=== PATIENT | female | born 1995 | race African-American/Black ===

== ENCOUNTER 2016-08-24 17:49 | Emergency (ER) | payer OTHER ==
[~2016-08-24] VITALS: Ht 162.6 cm; Wt 52.2 kg
--- NOTE | 2016-08-24 18:00 | ED.ADGEN ---
Past History Past Medical History: No Pertinent History Past Surgical History: No Surgical History Smoking: Less than 1pk/day Alcohol Use: None Drug Use: None Adult General Chief Complaint Chief Complaint " .. I got my depo the 3rd of the month.. but I am cramping.. and sweating.. and worried I may be ..." HPI HPI Patient is a 21 year old female who presents with above hx and complaints of cramping and fear she may be . I did get a depo.. and they checked me for .;, but I almost feel . Pt. has history of unprotected sex. Patient had some irregular bleeding and cramping. Patient denies history of STDs. Patient denies any bad food or travel. Patient denies any specific ill contacts. Patient states she lays is vaginal discharge and prior test negative for infection. Patient has a history of 2 and term 2. Review of Systems Review of Systems Constitutional: Denies fever or chills [] Eyes: Denies change in visual acuity, redness, or eye pain [] HENT: Denies nasal congestion or sore throat [] Respiratory: Denies cough or shortness of breath [] Cardiovascular: No additional information not addressed in HPI [] GI: complaints of generalized abdominal pain, nausea, . Denies vomiting, bloody stools or diarrhea [] : Denies dysuria or hematuria [] Complaints of vaginal bleeding. / spotting. Musculoskeletal: Denies back pain or joint pain [] Integument: Denies rash or skin lesions [] Neurologic: Denies headache, focal weakness or sensory changes [] Endocrine: Denies polyuria or polydipsia [] Family History Family History Noncontributory Current Medications Current Medications See nursing for home meds Allergies Allergies Allergies Coded Allergies Type Severity Reaction Last Updated Verified No Known Drug Allergies 06/04/13 No Physical Exam Physical Exam Constitutional: Well developed, well nourished, mild distress, non-toxic appearance. [] HENT: Normocephalic, atraumatic, bilateral external ears normal, oropharynx moist, no oral exudates, nose normal. [] Eyes: PERRLA, EOMI, conjunctiva normal, no discharge. [] Neck: Normal range of motion, no tenderness, supple, no stridor. [] Cardiovascular:Heart rate regular rhythm, no murmur [] Lungs & Thorax: Bilateral breath sounds clear to auscultation [] Abdomen: Bowel sounds normal, soft, mild generalized tenderness, no masses, no pulsatile masses. . Patient declines pelvic exam at this time. No true rebound. Skin: Warm, dry, no erythema, no rash. [] Back: No tenderness, no CVA tenderness. [] Extremities: No tenderness, no cyanosis, no clubbing, ROM intact, no edema. No psoas or obturator sign. Neurologic: Alert and oriented X 3, normal motor function, normal sensory function, no focal deficits noted. [] Psychologic: Affect anxious, judgement normal, mood normal. [] Current Patient Data Vital Signs Vital Signs Date Time Temp Pulse Resp B/P Pulse Ox O2 Delivery O2 Flow Rate FiO2 08/24/16 21:00 78 22 118/64 98 Room Air 08/24/16 18:00 98.3 Lab Results Laboratory Tests Test 08/24/16 17:50 08/24/16 20:15 Urine Collection Type Unknown Urine Color Yellow Urine Clarity Hazy Urine pH 6.5 Urine Specific [place] 1.025 Urine Protein Neg (NEG-TRACE) Urine Glucose (UA) Negmg/dL (NEG) Urine Ketones (Stick) Negmg/dL (NEG) Urine Blood Neg (NEG) Urine Nitrite Neg (NEG) Urine Bilirubin Neg (NEG) Urine Urobilinogen Dipstick 0.2mg/dL (0.2 mg/dL) Urine Leukocyte Esterase Neg (NEG) Urine RBC 0/HPF (0-2) Urine WBC Occ/HPF (0-4) Urine Squamous Epithelial Cells Occ/LPF Urine Bacteria 0/HPF (0-FEW) Urine Hyaline Casts Occ/HPF Urine Test Positive (NEG) Urine Opiates Screen Neg (NEG) Urine Methadone Screen Neg (NEG) Urine Barbiturates Neg (NEG) Urine Phencyclidine Screen Neg (NEG) Urine Amphetamine/Methamphetamine Neg (NEG) Urine Benzodiazepines Screen Neg (NEG) Urine Cocaine Screen Neg (NEG) Urine Cannabinoids Screen Pos (NEG) Urine Ethyl Alcohol Neg (NEG) White Blood Count 7.6x10^3/uL (4.0-11.0) Red Blood Count 4.09x10^6/uL (3.50-5.40) Hemoglobin 13.0g/dL (12.0-15.5) Hematocrit 37.7% (36.0-47.0) Mean Corpuscular Volume 92fL (79-100) Mean Corpuscular Hemoglobin 32pg (25-35) Mean Corpuscular Hemoglobin Concent 35g/dL (31-37) Red Cell Distribution Width 13.4% (11.5-14.5) Platelet Count 256x10^3/uL (140-400) Neutrophils (%) (Auto) 56% (31-73) Lymphocytes (%) (Auto) 32% (24-48) Monocytes (%) (Auto) 7% (0-9) Eosinophils (%) (Auto) 5% (0-3) H Basophils (%) (Auto) 1% (0-3) Neutrophils # (Auto) 4.2x10^3uL (1.8-7.7) Lymphocytes # (Auto) 2.4x10^3/uL (1.0-4.8) Monocytes # (Auto) 0.5x10^3/uL (0.0-1.1) Eosinophils # (Auto) 0.4x10^3/uL (0.0-0.7) Basophils # (Auto) 0.0x10^3/uL (0.0-0.2) Prothrombin Time 10.7SEC (9.4-11.4) Prothrombin Time INR 1.0 (0.9-1.1) PTT 25SEC (23-33) Maternal Serum HCG Beta Subunit 51413lOZ/mL (0-6) H Sodium Level 137mmol/L (136-145) Potassium Level 3.5mmol/L (3.5-5.1) Chloride Level 104mmol/L (98-107) Carbon Dioxide Level 25mmol/L (21-32) Anion Gap 8 (6-14) Blood Urea Nitrogen 7mg/dL (7-20) Creatinine 0.5mg/dL (0.6-1.0) L Estimated GFR (Cockcroft-Gault) 185.0 Glucose Level 81mg/dL (70-99) Calcium Level 8.5mg/dL (8.5-10.1) Total Bilirubin 0.5mg/dL (0.2-1.0) Direct Bilirubin 0.2mg/dL (0.0-0.2) Aspartate Amino Transferase (AST) 15U/L (15-37) Alanine Aminotransferase (ALT) 20U/L (14-59) Alkaline Phosphatase 73U/L (46-116) Total Protein 6.5g/dL (6.4-8.2) Albumin 3.6g/dL (3.4-5.0) EKG EKG [] Radiology/Procedures Radiology/Procedures Ultrasound shows a a retroverted uterus with a 2 x 8 cm with gestation sac, live intrauterine of 7 weeks 3 days heart rate has had 152 bpm. No obvious abnormalities and ovaries. Small amount of free pelvic fluid. [] Course & Med Decision Making Course & Med Decision Making Pertinent Labs and Imaging studies reviewed. (See chart for details). Patient declined further evaluation or pelvic exams. Patient states she will follow-up with her primary care and OB. Patient encouraged take vitamin. Patient return of any concerns. Must follow-up. Patient encouraged to stop smoking. [] Final Impression Final Impression 1. Intrauterine estimated due date 04/07/17 -7 wk 3 days. 2. Small implantation bleed noted [] 3. Beta hCG is 87, 452 4. O + blood type 5. Marijuana and tobacco use 6. Threaten / miscarry Problems: Dragon Disclaimer Dragon Disclaimer This electronic medical record was generated, in whole or in part, using a voice recognition dictation system. SHA JACOB MD Aug 24, 2016 18:00
[2016-08-24 19:04] LABS: AMPHETAMINE/METHAMPHETAMINE NEG (NEG); BARBITURATES NEG (NEG); BENZODIAZEPINES NEG (NEG); CANNABINOIDS POS (NEG); COCAINE NEG (NEG); METHADONE NEG (NEG); OPIATES NEG (NEG); PHENCYCLIDINE NEG (NEG)
[2016-08-24 19:16] LABS: CLARITY,URINE HAZY; COLOR,URINE YELLOW
[2016-08-24 19:17] LABS: BACTERIA,URINE 0 /HPF (0-FEW); BILIRUBIN,URINE NEG (NEG); GLUCOSE,URINE NEG (NEG); HYALINE CASTS, URINE OCC /HPF; NITRITE,URINE NEG (NEG); RBC,URINE 0 /HPF (0-2); SQUAMOUS EPITHELIAL CELL,UR OCC /LPF; UROBILINOGEN,URINE 0.2 mg/dL (0.2 mg/dL); WBC,URINE OCC /HPF (0-4)
[2016-08-24 19:44] LABS: U PREG PATIENT POSITIVE (NEG)
--- NOTE | 2016-08-24 20:46 | RAD ---
PROCEDURE First trimester OB ultrasound. HISTORY Pelvic pain for 1 week. Depo shot on August 09. Patient states negative urine test that day. HCG today not yet available. TECHNIQUE Transabdominal imaging was initially performed, transvaginal imaging also required to better evaluate the IUP. COMPARISON None. FINDINGS There is a single live intrauterine with heart tones of 152 beats per minute. Gestational sac and crown-rump length are concordant. Yolk sac is visualized. [place]-rump length measurement is 1.27 centimeters corresponding to a gestational age of 7 weeks 3 days and an KADI by ultrasound of April 09, 2017. There is an implantation bleed measuring 2.8 x 0.7 x 2.2 centimeters. Both maternal ovaries are visualized and unremarkable, color-flow documented. Uterus is retroverted. Small amount of free pelvic fluid is noted. IMPRESSION Single live intrauterine measures 7 weeks 3 days with heart tones of 152 beats per minute. Small implantation bleed noted. Short-term follow-up would be of benefit given implantation bleed. Electronically signed by: Inder Nunn MD (Aug 24, 2016 20:44:53)
[2016-08-24 20:50] LABS: BASO % 1 % (0-3); EOS # 0.4 x10^3/uL (0.0-0.7); EOS % 5 % (0-3); HEMATOCRIT 37.7 % (36.0-47.0); LYMPH # 2.4 x10^3/uL (1.0-4.8); LYMPH % 32 % (24-48); MEAN CORPUSCULAR HEMOGLOBIN 32 pg (25-35); MEAN CORPUSCULAR HGB CONC 35 g/dL (31-37); MEAN CORPUSCULAR VOLUME 92 fL (79-100); MONO # 0.5 x10^3/uL (0.0-1.1); MONO % 7 % (0-9); NEUT # 4.2 x10^3uL (1.8-7.7); NEUT % 56 % (31-73); PLATELET COUNT 256 x10^3/uL (140-400); RED BLOOD COUNT 4.09 x10^6/uL (3.50-5.40); RED CELL DISTRIBUTION WIDTH 13.4 % (11.5-14.5); WHITE BLOOD COUNT 7.6 x10^3/uL (4.0-11.0)
[2016-08-24 21:00] VITALS: BP 118/64
[2016-08-24 21:04] LABS: ALBUMIN 3.6 g/dL (3.4-5.0); CALCIUM 8.5 mg/dL (8.5-10.1); CREATININE 0.5 mg/dL (0.6-1.0); DIRECT BILIRUBIN 0.2 mg/dL (0.0-0.2); POTASSIUM 3.5 mmol/L (3.5-5.1); TOTAL BILIRUBIN 0.5 mg/dL (0.2-1.0); TOTAL PROTEIN 6.5 g/dL (6.4-8.2)
[2016-08-27 12:10] LABS: RPR REFLEX Non Reactive (Non Reactive)
== END 2016-08-24 21:00 | disposition home or self-care (01) ==
LOC: ER 17:49
DX: O46.91 Antepartum hemorrhage, unspecified, first trimester (principal); R10.9 Unspecified abdominal pain; O99.331 Smoking (tobacco) complicating pregnancy, first trimester; F12.10 Cannabis abuse, uncomplicated; Z3A.01 Less than 8 weeks gestation of pregnancy
CPT/HCPCS: 36415; 76801; 76817; 80048; 80076; 81001; 81025; 84443; 84702; 85027; 85610; 85730; 86592; 86593; 86703; 86900; 86901; 99285; G0481

== ENCOUNTER 2019-07-19 03:28 | Emergency (ER) | payer SELFPAY ==
[~2019-07-19] VITALS: Ht 165.1 cm; Wt 50.0 kg
[2019-07-19] MEDS ORDERED: IV RINGERS SOLUTION,LACTATED 1,000 ML IV SCH (03:34)
--- NOTE | 2019-07-19 03:34 | PHYS DOC ---
Past History Past Medical History: Anxiety, Other Past Surgical History: No Surgical History Smoking: Less than 1pk/day Alcohol Use: None Drug Use: Marijuana Adult General Chief Complaint Chief Complaint: ".. I ve been sick since Sat. .. Vomiting... " [facility] HPI Patient is a 24 year old female who presents with above hx and complaints fever, chills, malaise, arthralgia, myalgia, vomiting, and hyperglycemia per paramedics. Pt. did not get flu vaccination this season. Patient denies any travel or specific ill contacts. Patient denies she is . Patient has had 3 prior pregnancies and vaginal deliveries. Patient denies any immunosuppression. No hx bad food intake. Pt. does smoke. . Review of Systems Review of Systems Constitutional: Hx. of fever or chills [] Eyes: Denies change in visual acuity, redness, or eye pain [] HENT: Denies nasal congestion or sore throat [] Respiratory: Hx. of cough and wheezing Cardiovascular: No additional information not addressed in HPI [] GI: Hx. of abdominal pain, nausea, vomiting,. Denies bloody stools or diarrhea [] : Denies dysuria or hematuria [] Musculoskeletal:Complaints of generalize muscle and joint pain Integument: Denies rash or skin lesions [] Neurologic: Denies headache, focal weakness or sensory changes [] Endocrine: Denies polyuria or polydipsia [] All other systems were reviewed and found to be within normal limits, except as documented in this note. Family History Family History Non-contributory Current Medications Current Medications See Nursing for home meds Allergies Allergies Allergies Coded Allergies Type Severity Reaction Last Updated Verified No Known Drug Allergies 06/04/13 No Physical Exam Physical Exam Constitutional:[place] acute distress, non-toxic appearance. [] HENT: Normocephalic, atraumatic, bilateral external ears normal, oropharynx dry, no oral exudates, nose normal. [] Eyes: PERRLA, EOMI, conjunctiva normal, no discharge. [] Neck: Normal range of motion, no tenderness, supple, no stridor. [] Cardiovascular: Tachycardia Heart rate regular rhythm, no murmur [] Lungs & Thorax: Bilateral breath sounds equal at apexes with scattered wheezes on auscultation [] Abdomen: Bowel sounds hyperactive soft, generalized tenderness, no masses, no pulsatile masses. [] Rebound to epigastric area. Skin: Warm, dry, no erythema, no rash. Multiple tattoos. Back: No tenderness, no CVA tenderness. [] Extremities: No tenderness, no cyanosis, no clubbing, ROM intact, no edema. []No cording noted. Neurologic: Alert and oriented X 3, normal motor function, normal sensory function, no focal deficits noted. [] Psychologic: Affect anxious, judgement normal, mood normal. [] EKG EKG [] Radiology/Procedures Radiology/Procedures [][address] [id number] IMAGING REPORT Signed PATIENT: BENITO PICKETT ACCOUNT: [id number] : 1995 LOCATION: ER AGE: 24 SEX: F EXAM STATUS: REG ER ORD. PHYSICIAN: SHA JACOB MD REASON: n/v, COUGH, SINCE 07/17/2019 PROCEDURE: ACUTE ABDOMEN SERIES ACUTE ABDOMEN SERIES History: Nausea and vomiting, cough since July 17. Comparison: None. Findings: Frontal chest and supine and upright views of the abdomen. Cardiomediastinal silhouette is normal. There is no pleural effusion or pneumothorax. The lungs are clear. No pneumoperitoneum is identified. No dilated air-filled loops of bowel are seen. Bowel gas pattern is nonobstructive. Transitional lumbosacral anatomy. IMPRESSION: 1. No acute cardiopulmonary process. 2. Nonobstructive bowel gas pattern. Electronically signed by: Carlo Godfrey MD (07/19/2019 5:08 AM) [id number] DICTATED AND SIGNED BY: CARLO GODFREY MD DATE: 07/19/19 0508 CC: SHA JACOB MD; PCP,NO ~ Course & Med Decision Making Course & Med Decision Making Pertinent Labs and Imaging studies reviewed. (See chart for details) Patient's stay on a clear fluid diet for the next 48 hours. Patient push fluids. Patient "cool drinks. No solids or milk products. Take Zofran 8 mg up 4 times a day for active vomiting. Take Tylenol and ibuprofen for discomfort. Showers and baths may also help control temperature. Follow-up primary care. Currently patient to quit smoking. Consider getting seasonal flu vaccination when over this acute illness. MDI 2 puffs 4 times a day. Impression: 1. Nausea vomiting 2. Abdomen pain 3. Viral syndrome 4. Tobacco use 5. Dehydration 6. Hypoglycemia 7. Influenza B [] Dragon Disclaimer Dragon Disclaimer This electronic medical record was generated, in whole or in part, using a voice recognition dictation system. Departure Departure: Disposition: 01 HOME/RESIDENCE PRIOR TO ADM Condition: STABLE Referrals: PCP,NO (PCP) Scripts Oseltamivir Phosphate (TAMIFLU) 75 Mg Capsule 75 MG PO BID for influenza for 5 Days, #10 CAP Prov: SHA JACOB MD 07/19/19 Ondansetron Hcl (ZOFRAN) 8 Mg Tablet 8 MG PO QIDPRN PRN for for active vomiting. , #30 BOTTLE Prov: SHA JACOB MD 07/19/19 John Disclaimer This chart was dictated in whole or in part using Voice Recognition software in a busy, high-work load, and often noisy Emergency Department environment. It may contain unintended and wholly unrecognized errors or omissions. SHA JACOB MD Jul 19, 2019 03:34
[2019-07-19] MEDS ORDERED: FAMOTIDINE 20 MG/2 ML VIAL IVP ONE (03:45)
[2019-07-19] MEDS ORDERED: ONDANSETRON PF 4 MG/2 ML VIAL. IVP ONE (03:45)
[2019-07-19] MEDS ORDERED: ACETAMINOPHEN 500 MG TABLET PO ONE (04:30)
[2019-07-19 04:32] LABS: BASO % 0 % (0-3); EOS % 0 % (0-3); HEMATOCRIT 41.1 % (36.0-47.0); HEMOGLOBIN 13.5 g/dL (12.0-15.5); LYMPH # 0.4 x10^3/uL (1.0-4.8); LYMPH % 10 % (24-48); MEAN CORPUSCULAR HEMOGLOBIN 30 pg (25-35); MEAN CORPUSCULAR HGB CONC 33 g/dL (31-37); MEAN CORPUSCULAR VOLUME 92 fL (79-100); MONO # 0.3 x10^3/uL (0.0-1.1); MONO % 8 % (0-9); NEUT # 3.6 x10^3uL (1.8-7.7); NEUT % 82 % (31-73); PLATELET COUNT 182 x10^3/uL (140-400); RED BLOOD COUNT 4.46 x10^6/uL (3.50-5.40); RED CELL DISTRIBUTION WIDTH 13.1 % (11.5-14.5); WHITE BLOOD COUNT 4.3 x10^3/uL (4.0-11.0)
[2019-07-19 04:45] LABS: CALCIUM 8.4 mg/dL (8.5-10.1); CREATININE 0.6 mg/dL (0.6-1.0); GFR 146.2; POTASSIUM 3.4 mmol/L (3.5-5.1)
[2019-07-19] MEDS ORDERED: IBUPROFEN 600 MG TABLET. PO ONE (04:45)
[2019-07-19 04:50] LABS: DIRECT BILIRUBIN 0.1 mg/dL (0.0-0.2); TOTAL BILIRUBIN 0.6 mg/dL (0.2-1.0); TOTAL PROTEIN 6.9 g/dL (6.4-8.2)
[2019-07-19] MEDS ORDERED: predniSONE 10 MG TABLET PO ONE (05:00)
[2019-07-19] MEDS ORDERED: ALBUTEROL SULFATE 8GM INHALER. INH ONE (05:00)
--- NOTE | 2019-07-19 05:11 | RAD ---
ACUTE ABDOMEN SERIES History: Nausea and vomiting, cough since July 17. Comparison: None. Findings: Frontal chest and supine and upright views of the abdomen. Cardiomediastinal silhouette is normal. There is no pleural effusion or pneumothorax. The lungs are clear. No pneumoperitoneum is identified. No dilated air-filled loops of bowel are seen. Bowel gas pattern is nonobstructive. Transitional lumbosacral anatomy. IMPRESSION: 1. No acute cardiopulmonary process. 2. Nonobstructive bowel gas pattern. Electronically signed by: Carlo Gresham MD (07/19/2019 5:08 AM) [id number]
[2019-07-19 05:38] LABS: BARBITURATES NEG (NEG); BENZODIAZEPINES NEG (NEG); CANNABINOIDS POS (NEG); COCAINE NEG (NEG); METHADONE NEG (NEG); OPIATES NEG (NEG); PHENCYCLIDINE NEG (NEG)
[2019-07-19 05:39] LABS: BILIRUBIN,URINE NEG (NEG); CLARITY,URINE HAZY; COLOR,URINE YELLOW; GLUCOSE,URINE NEG (NEG); NITRITE,URINE NEG (NEG); UROBILINOGEN,URINE 0.2 mg/dL (0.2 mg/dL)
[2019-07-19 05:40] LABS: BACTERIA,URINE 0 /HPF (0-FEW); RBC,URINE 0 /HPF (0-2); SQUAMOUS EPITHELIAL CELL,UR FEW /LPF; WBC,URINE OCC /HPF (0-4)
[2019-07-19 05:41] LABS: AMPHETAMINE/METHAMPHETAMINE NEG (NEG)
[2019-07-19 05:51] LABS: INFLUENZA A PATIENT NEGATIVE (NEGATIVE); INFLUENZA B PATIENT POSITIVE (NEGATIVE)
[2019-07-19] MEDS ORDERED: ONDA8TAB9 PO (05:55)
[2019-07-19] MEDS ORDERED: OSEL75CA PO (06:04)
[2019-07-19] MEDS ORDERED: OSELTAMIVIR 75 MG CAPSULE PO ONE (06:15)
[2019-07-19 06:50] VITALS: BP 98/58
== END 2019-07-19 06:50 | disposition home or self-care (01) ==
LOC: ER 03:28
DX: B34.9 Viral infection, unspecified (principal); E86.0 Dehydration; J10.1 Influenza due to other identified influenza virus with other respiratory manifestations; E16.2 Hypoglycemia, unspecified; F17.210 Nicotine dependence, cigarettes, uncomplicated
CPT/HCPCS: 36415; 74022; 80048; 80076; 80307; 81001; 81025; 82947; 83690; 83735; 84443; 84484; 85025; 85610; 85730; 87070; 87804; 87880; 96361; 96374; 96375; 99284; J2405; J3490; J7120; J7512; J7613